=== PATIENT | female | born 1955 | race Caucasian/White ===

== ENCOUNTER 2018-08-31 18:37 | Emergency (ER) | payer OTHER ==
[~2018-08-31] VITALS: Ht 167.6 cm; Wt 84.0 kg
[2018-08-31] MEDS ORDERED: MORPHINE SULFATE 10 MG/ML CPJ IM ONE (20:45)
[2018-08-31] MEDS ORDERED: KETOROLAC 30MG/ML VIAL IM ONE (20:45)
[2018-09-01 02:00] VITALS: BP 150/60
== END 2018-09-01 02:00 | disposition home or self-care (01) ==
LOC: ER 18:37
DX: S42.292A Other displaced fracture of upper end of left humerus, initial encounter for closed fracture (principal); F20.9 Schizophrenia, unspecified; F17.210 Nicotine dependence, cigarettes, uncomplicated; W01.0XXA Fall on same level from slipping, tripping and stumbling without subsequent striking against object, initial encounter; Y93.89 Activity, other specified; Y92.488 Other paved roadways as the place of occurrence of the external cause
CPT/HCPCS: 73030; 73070; 73090; 96372; 99283; J1885; J2270